=== PATIENT | female | born 1975 | race Caucasian/White ===

== ENCOUNTER → 2020-02-27 | Outpatient (REF) | payer OTHER ==
[2020-02-27 18:24] LABS: BASO % 0.4 % (0.0-1.0); EOS % 0.4 % (0.0-3.0); HEMATOCRIT 42.4 % (36.0-47.0); LYMPH # 2.2 10^3/uL (1.5-5.0); LYMPH % 24.2 % (24.0-44.0); MEAN CORPUSCULAR HEMOGLOBIN 30.5 pg (27.0-33.0); MEAN CORPUSCULAR VOLUME 92.4 fl (80.0-96.0); MONO # 0.7 10^3/uL (0.0-0.8); MONO % 8.1 % (0.0-5.0); NEUTROPHILS % 66.6 % (36.0-66.0); PLATELET COUNT, AUTOMATED 303 10^3/uL (150-450); RED BLOOD COUNT 4.59 10^6/uL (4.00-5.40); WHITE BLOOD COUNT 9.1 10^3/uL (4.0-10.0)
[2020-02-27 18:57] LABS: ALBUMIN 3.9 GM/DL (3.2-5.2); ALT/SGPT 26 U/L (12-78); AMYLASE 50 U/L (25-115); BILIRUBIN,TOTAL 0.2 MG/DL (0.2-1.0); BLOOD UREA NITROGEN 19 MG/DL (7-18); CARBON DIOXIDE LEVEL 27 MEQ/L (21-32); CHLORIDE LEVEL 106 MEQ/L (98-107); CREATININE FOR GFR 0.94 MG/DL (0.55-1.30); GLOMERULAR FILTRATION RATE > 60.0 (>58); GLUCOSE, FASTING 76 MG/DL (70-100); LIPASE 166 U/L (73-393); POTASSIUM SERUM 4.1 MEQ/L (3.5-5.1); SODIUM LEVEL 139 MEQ/L (136-145); TOTAL PROTEIN 6.8 GM/DL (6.4-8.2)
== END ==
LOC: M SFHCLERA 15:40
PROVIDERS: ATTEND Nurse Practitioner Family
DX: R10.9 Unspecified abdominal pain (principal)
CPT/HCPCS: 80053; 82150; 83690; 85025; G0463

== ENCOUNTER → 2020-03-01 | Outpatient (REF) | payer OTHER | LOC: M SFHCLUC 15:59 | PROVIDERS: ATTEND Nurse Practitioner Family | DX: R10.9 Unspecified abdominal pain (principal) ==

== ENCOUNTER 2020-08-20 09:56 | Day surgery (SDC) | payer OTHER ==
[~2020-08-20] VITALS: Ht 162.6 cm; Wt 63.0 kg
[~2020-08-20 09:56] MED LIST: MULTCAP PO; NEPHTAB2 PO; NS 1,000 ML IV ONE; VITA-243 PO
[2020-08-20] MEDS ORDERED: propofoL 200 MG/20 ML VIAL As Ordered ONE (11:08)
[2020-08-20] MEDS ORDERED: LIDOCAINE 2% 100MG/5ML SDV (FOR ANES.) As Ordered ONE (11:08)
--- NOTE | 2020-08-20 11:13 | ROOR ---
Patient Name: Danika Boothe Procedure Date: 08/20/2020 10:58 AM Date of : 1975 Age: 45 Room: [facility] Gender: Female Note Status: Finalized Procedure: Upper Endoscopy + Biopsies Indications: Epigastric abdominal pain, Exclusion of peptic ulcer Providers: Riky Oro MD Referring MD: THEO VENEGAS MD Requesting Provider: Medicines: Monitored Anesthesia Care Complications: No immediate complications. Procedure: Pre-Anesthesia Assessment: - The heart rate, respiratory rate, oxygen saturations, blood pressure, adequacy of pulmonary ventilation, and response to care were monitored throughout the procedure. The Endoscope was introduced through the mouth, and advanced to the second part of duodenum. The upper GI endoscopy was accomplished without difficulty. The patient tolerated the procedure well. Findings: The Z-line was regular and was found 40 cm from the incisors. No other significant abnormalities were identified in a careful examination of the stomach. Biopsies were taken with a cold forceps in the gastric antrum for Helicobacter pylori testing. The exam of the duodenum was otherwise normal. Impression: - Z-line regular, 40 cm from the incisors. - Biopsies were taken with a cold forceps for Helicobacter pylori testing. - The examination was otherwise normal. Recommendation: - Patient has a contact number available for emergencies. The signs and symptoms of potential delayed complications were discussed with the patient. Return to normal activities tomorrow. Written discharge instructions were provided to the patient. - High fiber diet. - Discharge patient to home. - Follow an antireflux regimen. - Continue present medications. - Await pathology results. - Telephone GI clinic for pathology results in 1 week. - Return to referring physician. - The findings and recommendations were discussed with the patient. Riky Oro MD Riky Oro MD 08/20/2020 11:12:47 AM Electronically signed by iRky Oro MD Number of Addenda: 0 Note Initiated On: 08/20/2020 10:58 AM Estimated Blood Loss: Estimated blood loss: none.
[2020-08-20 11:45] VITALS: BP 99/65
== END 2020-08-20 12:00 | disposition home or self-care (01) ==
LOC: M OPP 09:56
PROVIDERS: ATTEND Internal Medicine Gastroenterology
DX: R10.13 Epigastric pain (principal); K31.89 Other diseases of stomach and duodenum; K29.70 Gastritis, unspecified, without bleeding; K21.9 Gastro-esophageal reflux disease without esophagitis; Z79.899 Other long term (current) drug therapy; Z88.8 Allergy status to other drugs, medicaments and biological substances; Z91.048 Other nonmedicinal substance allergy status; F17.210 Nicotine dependence, cigarettes, uncomplicated

== ENCOUNTER → 2021-05-29 | Outpatient (CLI) | payer OTHER ==
[~2021-05-29] MED LIST changes: +LIDOCAINE 1% MDV 20ML VIAL As Ordered ONE; -NS 1,000 ML IV ONE; +SODIUM BICARBONATE 8.4% INJ 50MEQ 50 ML VIAL As Ordered ONE
[2021-05-29 14:20] VITALS: BP 110/54
--- NOTE | 2021-05-29 15:45 | REP ---
INDICATION: RIGHT THYROID NODULE. COMPARISON: None. TECHNIQUE: The procedure was performed by RACHEL Preston, under the direct supervision of Dr. hPam. The risks and benefits of the procedure were explained to the patient and an informed consent was obtained both verbally and written. Directly prior to the start of the procedure a formal time-out was completed in the procedure room. As per the ordering physician's order the 2.9 cm thyroid nodule on the right was localized using ultrasound guidance. The skin was prepped and draped in a sterile fashion. Four mL of buffered lidocaine was used as a local anesthetic. Using ultrasound guidance a 6 fine needle aspirations were obtained using 25 gauge needles. Four specimens were sent for lab here, and 2 specimens were sent out for Afirma testing. As per the ordering physician's order the 1.6 cm thyroid nodule on the left was localized using ultrasound guidance. The skin was prepped and draped in a sterile fashion. Three ML of buffered lidocaine was used as a local anesthetic. Using ultrasound guidance a 6 fine needle aspirations were obtained using 25 gauge needles. Four specimens were sent for lab here, and 2 specimens were sent out for Afirma testing. FINDINGS: The patient tolerated the procedure well and there were no immediate complications. After the appropriate amount of monitored convalescence the patient was discharged from the department. IMPRESSION: Ultrasound-guided bilateral thyroid nodule fine needle aspiration. <Electronically signed by Whit Jain > 05/29/21 1541 <Electronically signed by Varghese Pham > 05/29/21 1543
--- NOTE | 2021-05-29 16:07 | REP ---
INDICATION: RT THYROID NODULE. COMPARISON: None. TECHNIQUE: Routine ultrasound FINDINGS: Right lobe: Measures 5.8 x 1.9 x 2.4 cm. Multiple tiny nodules. A nodule in the lower pole measures 2.6 x 2.4 x 2.2 cm. Left lobe: Measures 4.9 x 1.8 x 1.8 cm. Multiple small nodules. Lower pole nodule measuring 12 x 8 x 7 mm. Upper pole cyst measuring 1 x 0.7 x 1.5 cm. Isthmus measuring 4 mm. Nodule in the isthmus measuring 7 mm. IMPRESSION: Multiple small thyroid nodules. Nodule in the lower pole of the right lobe measures 2.6 x 2.4 x 2.2 cm. <Electronically signed by Alfonso Bassett > 05/29/21 2500
== END ==
LOC: M IRPRO 13:08
PROVIDERS: ATTEND Otolaryngology
DX: D34 Benign neoplasm of thyroid gland (principal)

== ENCOUNTER → 2022-06-25 | Outpatient (CLI) | payer OTHER ==
[~2022-06-25] MED LIST changes: -LIDOCAINE 1% MDV 20ML VIAL As Ordered ONE; -SODIUM BICARBONATE 8.4% INJ 50MEQ 50 ML VIAL As Ordered ONE
== END ==
LOC: M RAD 08:29
PROVIDERS: ATTEND Otolaryngology
DX: D44.0 Neoplasm of uncertain behavior of thyroid gland (principal)